=== PATIENT | female | born 1980 | race African-American/Black ===

== ENCOUNTER 2023-07-13 09:09 | Outpatient (CLI) | payer OTHER, MEDICAID | END 2023-07-13 09:10 | disposition home or self-care (01) | LOC: CSHCP 09:09 | PROVIDERS: ATTEND Internal Medicine Critical Care Medicine | DX: R06.09 Other forms of dyspnea (principal); R94.2 Abnormal results of pulmonary function studies | CPT/HCPCS: 94010; 94726; 94729; 94760 ==

== ENCOUNTER 2025-06-01 11:11 | Outpatient (CLI) | payer OTHER, MEDICAID ==
[2025-06-01 11:51] LABS: #Basophils 0.11 10x3/uL (0.0-0.2); #Eosinophils 0.20 10x3/uL (0.0-0.5); #Monocytes 0.62 10x3/uL (0.0-1.1); #Neutrophils 4.98 10x3/uL (1.5-8.4); %Basophils 1.2 % (0.0-2.0); %Eosinophils 2.2 % (0.0-6.0); %Lymphocytes 32.7 % (18.0-47.0); %Monocytes 6.7 % (0.0-10.0); %Neutrophils 53.6 % (40.0-75.0); Hematocrit 48.0 % (34.9-44.5); Hemoglobin 15.5 g/dL (12.0-15.5); Mean Corpuscular Hemoglobin 27.5 pg (27.0-33.0); Mean Corpuscular Volume 85.1 fL (81.6-98.3); Platelet Count 322 10x3/uL (150-450); Red Blood Cell (RBC) Count 5.64 10x6/uL (3.90-5.03); White Blood Cell (WBC) Count 9.27 10x3/uL (3.5-10.5)
[2025-06-01 12:58] LABS: Anion Gap 14 mmol/L (10-20); BUN (Urea Nitrogen) 13 mg/dL (7.0-18.7); Calc. Creatinine Clearance 0 mL/min (70-130); Calcium 8.5 mg/dL (7.8-10.44); Carbon Dioxide 19 mmol/L (22-29); Chloride 103 mmol/L (98-107); Potassium 3.9 mmol/L (3.5-5.1); Sodium 132 mmol/L (136-145)
[2025-06-01 13:04] LABS: Glucose 603 mg/dL (70-105)
== END 2025-06-01 11:12 | disposition home or self-care (01) ==
LOC: CSHLAB 11:11
PROVIDERS: ATTEND Surgery
DX: Z01.812 Encounter for preprocedural laboratory examination (principal); N90.89 Other specified noninflammatory disorders of vulva and perineum; K60.30 Anal fistula, unspecified
CPT/HCPCS: 80048; 85025